=== PATIENT | male | born 1960 | race Hispanic/Latino ===

== ENCOUNTER 2022-09-14 10:30 | Inpatient (IN) | payer OTHER ==
--- OUTSIDE RECORDS SUMMARY | 2022-09-14 10:33 | XMS REPORT | Continuity of Care Document ---
:1960 Author Organization [facility] t Address [address] [place]. [address] [place] [address] Care Team Providers Name Role Phone No MD, Pcp Primary Care Physician Unavailable STACI ARRIAZA Attending Clinician Unavailable Laser, [facility] Attending Clinician Unavailable ADELINA GRAHAM Attending Clinician Unavailable VIRAJ Attending Clinician Unavailable STACI ARRIAZA Admitting Clinician Unavailable VIRAJ Admitting Clinician Unavailable Payers Payer Name Policy Type Policy Number Effective Date Expiration Date S aby HU[employer] [id number] 2019 2019 00:00:00 00:00:00 [employer] MEDICARE [id number] 2019 ADVANTAGE O 00:00:00 Problems Condition Condition Condition Status Onset Resolution Last Treating Co mments Source Name Details Category Date Date Treatment Clinician Date 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 3 [facility]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, glaucoma, 00:00: right eye, right eye, 00 severe severe stage stage 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 [facility] 00:00: 00 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 330 [facility] 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 Social History Social Habit Start Date Stop Date Quantity Comments Source Exposure to 2022-08-20 2022-08-30 Not sure [facility] SARS-CoV-2 (event) 00:00:00 07:33:00 Tobacco use and 2022-07-19 2022-07-19 Smokeless tobacco [facility] exposure 00:00:00 00:00:00 non-user Sex Assigned At [birth year] [facility] 00:00:00 00:00:00 Smoking Status Start Date Stop Date Source Never smoked tobacco [facility] Medications Ordered Filled Start Stop Current Ordering Indication Dosage Frequency Signature Comments Components Source Medication Medication Date Date Medication? Clinician (SIG) Name Name dorzolamide 2022- No 1[drp] Q.5D Administer [place] -timolol 5-02 24-11 1 drop [facility] (Cosopt) 08:57: 00:00 into the 22.3-6.8 06 :00 right eye MG/ML in the ophthalmic morning solution and 1 drop in the evening. acetaZOLAMI 2022- No 500mg Q.5D Take 500 [place] (Diamox) 5-11 05-11 mg by [facility] 500 MG 12 08:52: 00:00 mouth in hr capsule 24 :00 the morning and 500 mg in the evening. metFORMIN Yes Take by [place] (Glucophage 5-11 mouth 2 [facility]alt [facility] ) 500 MG 08:17: (two) tablet 47 times a day with meals. Insulin Yes Inject [facility] Aspart 100 5-11 under the Heal th UNIT/ML 08:17: skin 3 injection 47 (three) times a day before meals. prednisoLON Yes [id number] 1 drop in [place] E acetate 5-11 9101 right eye Healt h (Pred-Forte 00:00: 4 times a ) 1 % 00 day. ophthalmic suspension brimonidine 0 202- Yes [id number] 1[drp] Q12H Administer [facility] -timolol 5-11 05-11 1 drop Health (Combigan) 00:00: 04:59 into both 0.2-0.5 % 00 :00 eyes every ophthalmic 12 solution (twelve) hours. acetaZOLAMI 2022- Yes [id number] 500mg Q.5D Take 1 [place] (Diamox) 08-30 capsule Heal th 500 MG 12 00:00: 04:59 (500 mg hr capsule 00 :00 total) by mouth in the morning and 1 capsule (500 mg total) in the evening. Take medication at mealtime.. latanoprost 2022- No 1[drp] Administer [facility] (Xalatan) 08-01 1 drop Health 0.005 % 09:47: 00:00 into the ophthalmic 28 :00 right eye solution every night. brimonidine 2022- No 1[drp] Q.[id number] Administer [facility] (AlphaGAN 08-01 [id number] 1 drop H ealth P) 0.1 % 09:47: 00:00 3D into the ophthalmic 06 :00 right eye solution in the morning and 1 drop at noon and 1 drop in the evening. prednisoLON Yes [id number] 1 drop in [place] E acetate 08-01 right eye Healt h (Pred-Forte 00:00: 8 times a ) 1 % 00 day for 2 ophthalmic weeks, suspension then reduce to 1 drop 4 times a day for 1 week, then 1 drop 2 times a day for 1 week, then 1 drop once a day for one week, then STOP. atropine 1 2022- Yes [id number] 1[drp] Q.5D Administer [facility] % 08-01 1 drop Health ophthalmic 00:00: 04:59 into the solution 00 :00 right eye in the morning and 1 drop in the evening. prednisoLON 2022- No [id number] 1 drop in [place] E acetate 08-01 right eye Heal th (Pred-Forte 00:00: 00:00 8 times a ) 1 % 00 :00 day for 2 ophthalmic weeks, suspension then reduce to 1 drop 4 times a day for 1 week, then 1 drop 2 times a day for 1 week, then 1 drop once a day for one week, then STOP. atropine 1 2022- No [id number] 1[drp] Q.5D Administer [facility] % 4-12 05-11 1 drop Health ophthalmic 00:00: 00:00 into the solution 00 :00 right eye in the morning and 1 drop in the evening. metFORMIN 2023-0 Yes Take by [facility] (Glucophage 3-30 mouth 2 Healt h ) 500 MG 09:36: (two) tablet 54 times a day with meals. Insulin 2023-0 Yes Inject [facility] Aspart 100 3-30 under the Heal th UNIT/ML 09:36: skin 3 injection 54 (three) times a day before meals. latanoprost 2023-0 Yes 1[drp] Administer [facility] (Xalatan) 3-30 1 drop Health 0.005 % 09:36: into the ophthalmic 54 right eye solution every night. brimonidine 2023-0 Yes 1[drp] Q.[id number] Administer [facility] (AlphaGAN 3-30 [id number] 1 drop He alth P) 0.1 % 09:36: 3D into the ophthalmic 54 right eye solution in the morning and 1 drop at noon and 1 drop in the evening. acetaZOLAMI 2023-0 Yes 500mg Q.5D Take 500 U [place] (Diamox) 3-30 mg by Health 500 MG 12 09:36: mouth in hr capsule 54 the morning and 500 mg in the evening. dorzolamide 2023-0 Yes 1[drp] Q.5D Administer [facility] -timolol 3-30 1 drop Health (Cosopt) 09:36: into the 22.3-6.8 54 right eye MG/ML in the ophthalmic morning solution and 1 drop in the evening. metFORMIN 2023-0 Yes Take by [facility] (Glucophage 3-30 mouth 2 Healt h ) 500 MG 09:36: (two) tablet 54 times a day with meals. Insulin 2023-0 Yes Inject [place] Aspart 100 3-30 under the Heal th UNIT/ML 09:36: skin 3 injection 54 (three) times a day before meals. latanoprost 2023-0 Yes 1[drp] Administer [facility] (Xalatan) 3-30 1 drop Health 0.005 % 09:36: into the ophthalmic 54 right eye solution every night. brimonidine 2023-0 Yes 1[drp] Q.[id number] Administer [place] (AlphaGAN 3-30 [id number] 1 drop He alth P) 0.1 % 09:36: 3D into the ophthalmic 54 right eye solution in the morning and 1 drop at noon and 1 drop in the evening. acetaZOLAMI 0 Yes 500mg Q.5D Take 500 U [place] (Diamox) 3-30 mg by [facility] 500 MG 12 09:36: mouth in hr capsule 54 the morning and 500 mg in the evening. dorzolamide 0 Yes 1[drp] Q.5D Administer [facility] -timolol 3-30 1 drop Health (Cosopt) 09:36: into the 22.3-6.8 54 right eye MG/ML in the ophthalmic morning solution and 1 drop in the evening. metFORMIN Yes Take [place] (Glucophage 3-30 mouth 2 Healt [facility] ) 500 MG 09:36: (two) tablet 54 times a day with meals. Insulin Yes Inject [place] Aspart 100 3-30 under the Heal th UNIT/ML 09:36: skin 3 injection 54 (three) times a day before meals. acetaZOLAMI Yes 500mg Q.5D Take 500 U T [place] (Diamox) 3-30 mg by [facility] 500 MG 12 09:36: mouth in hr capsule 54 the morning and 500 mg in the evening. dorzolamide 0 Yes 1[drp] Q.5D Administer [facility] -timolol 3-30 1 drop Health (Cosopt) 09:36: into the 22.3-6.8 54 right eye MG/ML in the ophthalmic morning solution and 1 drop in the evening. Procedures Procedure Date / Time Performed Performing Clinician [facility] CYCLOPHOTOCOAGULATION, 2022-08-01 14:49:42 Staci Arriaza [place] [facility] TRANSSCLERAL - OD - RIGHT EYE OCT, RETINA - OU - BOTH EYES 2022-07-19 17:01:13 Staci Arriaza [facility] B-SCAN ULTRASOUND, HIGH 2022-07-19 16:40:56 Staci Arriaza [place] [facility] RESOLUTION - OU - BOTH EYES FUNDUS PHOTOS - OU - BOTH EYES 2022-07-19 16:25:24 Staci Arriaza [facility] Encounters Start End Encounter Admission Attending Care Care Encounter Source Date/Time Date/Time Type Type Clinicians Facility Department ID 2022-08-30 Outpatient [facility] [id number] [place] 07:35:04 [id number] [facility] 2022-08-20 Outpatient [facility] [id number] [place] 17:19:03 [id number] [facility] 2022-08-01 Outpatient [facility] [id number] [place] 08:16:38 [id number] [facility] 2022-07-26 Outpatient [facility] [id number] [place] 13:45:23 [id number] [facility] 2022-07-23 Outpatient [facility] [id number] [place] 17:09:13 [id number] [facility] 2022-07-19 Outpatient [facility] [id number] [place] 09:09:46 [id number] [facility] 2022-07-16 Outpatient [facility] [id number] [place] 10:47:39 [id number] [facility] 2022-07-10 Outpatient [facility] [id number] [place] 08:43:40 [id number] [facility] 2022-07-09 Outpatient [facility] [id number] [place] 09:40:02 [id number] [facility] 2022-06-29 Outpatient [facility] [id number] [place] 13:03:56 [id number] [facility] 2022-10-01 2022-10-01 Outpatient SHAUNASTACI [facility] [id number] [place] 08:30:00 08:30:00 [facility] 2022-08-30 2022-08-30 Office Staci Arriaza [facility] [id number] [place] 07:45:00 09:07:[address] [id number] Health [id number] 2022-08-01 2022-08-01 Procedure Staci Arriaza [facility] 6400 [id number] [place] 08:30:00 09:56:06 Visit Laser, [facility] Oph Minor [facility] 350.1.1 3.58 Health [id number] 2022-07-23 2022-07-23 Outpatient SHAUNASTACI [facility] [id number] [place] 09:45:00 09:45:00 Health 2022-07-19 2022-07-19 Outpatient [facility] [id number] [place] 11:00:00 12:14:27 [facility] 2022-07-19 2022-07-19 Outpatient [facility] [id number] [place] 09:45:00 12:14:10 Health 2022-07-19 2022-07-19 Outpatient [facility] [id number] [place] 09:35:00 12:13:38 Health 2022-07-19 2022-07-19 Office Staci Arriaza [place] [id number] [place] 09:15:00 12:09:17 Visit BG VERA [id number] [facility] [id number] 2022-06-24 2022-06-25 Emergency E SANTOS, [facility] [id number] [facility] 20:05:00 06:37:00 ADELINA 2021-11-06 2021-11-06 Outpatient GAGE PATTON [id number] [facility] 01:00:00 01:00:00 HN [id number] da [facility] Program Results This patient has no known results.
[2022-09-14 12:28] LABS: Blood Gas Oxyhemoglobin 87.1 % (94-97); Blood O2 Saturation 89.1 % (92-98.5)
[2022-09-14] MEDS ORDERED: INSULIN -REGULAR HUMAN 50 UNIT/0.5 ML ML ONE (12:33)
[2022-09-14] MEDS ORDERED: NA CHLORIDE 0.9% 1,000 ML ONE (12:33)
--- NOTE | 2022-09-14 12:36 | RAD REPORT ---
EXAM DESCRIPTION: Savita Single View09/14/2022 12:25 pm CLINICAL HISTORY: tachypnea COMPARISON: No comparisons TECHNIQUE: Portable AP view of the chest. FINDINGS: Elevation of the right hemidiaphragm. There appears to be interposition of bowel under the right hemidiaphragm as well. Patchy right basilar and central airspace opacification. No pneumothor ax or effusion. The cardiomediastinal contours are unremarkable. IMPRESSION: Patchy right basilar and central airspace opacification, concerning for pneumonia.
[2022-09-14 13:41] LABS: Albumin 2.7 g/dL (3.4-5.0); Bilirubin Total 0.8 mg/dL (0.2-1.0); Potassium 2.8 mEq/L (3.5-5.1); Protein, Total 7.6 g/dL (6.4-8.2)
--- NOTE | 2022-09-14 13:56 | ER ---
Nurse's Notes [facility] Name: Jameson Alves Age: 62 yrs Sex: Male : 1960 Arrival Date: 09/14/2022 Time: 10:30 Bed 4 Private MD: Diagnosis: Pneumonia, unspecified organism;Hyperglycemia, unspecified;Dehydration;Acidosis;Severe sepsis without septic shock Presentation: 09/14 11:25 Chief complaint: Patient's son or daughter states: WEAKNESS AND HIGH BGL. Coronavirus bp screen: At this time, the client does not indicate any symptoms associated with coronavirus-19. Ebola Screen: No symptoms or risks identified at this time. Initial Sepsis Screen: Does the patient meet any 2 criteria? No. Patient's initial sepsis screen is negative. Does the patient have a suspected source of infection? No. Patient's initial sepsis screen is negative. Risk Assessment: Do you want to hurt yourself or someone else?. Onset of symptoms is unknown. 11:25 Method Of Arrival: Wheelchair bp 11:25 Acuity: SOBIA 2 bp Triage Assessment: 11:31 General: Appears distressed, ill, Behavior is drowsy. Pain: Denies pain. EENT: No bp deficits noted. Neuro: No deficits noted. Cardiovascular: No deficits noted. Respiratory: Reports shortness of breath Respiratory effort is shallow, Respiratory pattern is tachypnea. Respiratory: Onset: The symptoms/episode began/occurred yesterday, the patient has moderate shortness of breath. GI: No signs and/or symptoms were reported involving the gastrointestinal system. : No signs and/or symptoms were reported regarding the genitourinary system. Derm: No deficits noted. Musculoskeletal: No deficits noted. Historical: - Allergies: 12:42 No Known Allergies; hb - Immunization history:: Adult Immunizations up to date. - Social history:: Smoking status: Patient denies any tobacco usage or history of. - Family history:: not pertinent. - Hospitalizations: : No recent hospitalization is reported. Screenin:10 [facility] ED Fall Risk Assessment (Adult) Score/Fall Risk Level 3 or more points = High hb Risk Oriented to surroundings, Maintained a safe environment, Educated pt \T\ family on fall prevention, incl call for assistance when getting out of bed. Abuse screen: Denies threats or abuse. Denies injuries from another. Nutritional screening: No deficits noted. Tuberculosis screening: No symptoms or risk factors identified. Assessment: 11:32 General: Appears ill. Pain: Denies pain. Neuro: Level of Consciousness is obeys hb commands, lethargic, Oriented to person. Cardiovascular: Patient's skin is warm and dry. Rhythm is sinus tachycardia. Respiratory: Airway is patent Respiratory effort is shallow, Respiratory pattern is tachypnea. GI: No signs and/or symptoms were reported involving the gastrointestinal system. : No signs and/or symptoms were reported regarding the genitourinary system. EENT: No signs and/or symptoms were reported regarding the EENT system. Derm: Skin is pink, warm \T\ dry. Musculoskeletal: No signs and/or symptoms reported regarding the musculoskeletal system. 13:00 Reassessment: Patient appears in no apparent distress at this time. No changes from hb previously documented assessment. Patient and/or family updated on plan of care and expected duration. Pain level reassessed. 14:29 Reassessment: Patient appears in no apparent distress at this time. No changes from hb previously documented assessment. Patient and/or family updated on plan of care and expected duration. Pain level reassessed. 15:32 Reassessment: Patient appears in no apparent distress at this time. No changes from hb previously documented assessment. 17:13 Reassessment: Patient appears in no apparent distress at this time. No changes from ld1 previously documented assessment. Patient and/or family updated on plan of care and expected duration. Pain level reassessed. Vital Signs: 11:25 BP 122 / 54; Pulse 76; Resp 24; Temp 99.1; Pulse Ox 91% ; bp 12:54 BP 120 / 74; Pulse 99; Resp 18; Pulse Ox 96% on R/A; ld1 14:59 BP 122 / 74; Pulse 100; Resp 30; Pulse Ox 95% on R/A; hb 16:00 BP 106 / 65; Pulse 91; Resp 31; Pulse Ox 92% on R/A; ld1 16:45 BP 95 / 59; Pulse 90; Resp 30; Pulse Ox 90% on R/A; ld1 ED Course: 10:33 Patient arrived in ED. ts1 10:36 Yared Moreira MD is Attending Physician. rn 11:27 Triage completed. bp 11:32 Arm band placed on. bp 12:26 Chest Single View XRAY In Process Unspecified. EDMS 13:00 Inserted saline lock: 20 gauge in left upper arm, using aseptic technique. Blood ld1 collected. 13:00 Inserted saline lock: 20 gauge in left wrist, using aseptic technique. ld1 13:10 Patient has correct armband on for positive identification. hb 13:54 Zachary Escobar MD is Hospitalizing Provider. rn 18:14 Attending Physician role handed off by Yared Moreira MD [email or web address] 18:29 Yared Moreira MD is Attending Physician. eb Administered Medications: 11:45 Drug: Insulin Regular Human IVP 10 units {Co-Signature: marco antonio (Bisi Diaz RN).} Route: hb IVP; Site: right wrist; 11:45 Drug: Insulin Regular Human Sub-Q 10 units {Co-Signature: marco antonio (Bisi Diaz RN).} hb Route: Sub-Q; Site: left upper arm; 12:32 Drug: NS 0.9% IV 1000 ml Route: IV; Rate: 1000 ml; Site: left wrist; hb 14:56 Drug: Rocephin IV 1 grams Route: IV; Rate: calculated rate; Site: left antecubital; ld1 14:56 Drug: AZITHromycin IVPB 500 mg Route: IVPB; Infused Over: 1 hrs; Site: left wrist; ld1 Outcome: 13:55 Decision to Hospitalize by Provider. rn 18:13 Patient left the ED. mm9 18:29 Patient left the ED. eb Signatures: Dispatcher [employer] EDNY Yared Moreira MD MD rn Baxter, Heather RN GENEVIEVE Renuka Garrett RN RN [id number] Arsalan Whipple RN RN bp Botello, Elizabeth eb Bisi Diaz, GENEVIEVE RN [email or web address] Anum Blackwell mm9 Pilar Hobbs PAS PAS ts1 Bisi Diaz RN ld1 Corrections: (The following items were deleted from the chart) 13:13 13:11 Insulin Regular Human Sub-Q 10 units Sub-Q in left upper arm hb hb
--- NOTE | 2022-09-14 13:56 | EDPHYS ---
Physician Documentation [facility] Name: Jameson Alves Age: 62 yrs Sex: Male : 1960 Arrival Date: 09/14/2022 Time: 10:30 Bed 4 Private MD: ED Physician Yared Moreira HPI: 09/14 12:16 This 62 yrs old Female presents to ER via Wheelchair with complaints of rn General weakness, high blood sugar. 12:16 Pt reports generalized weakness, since yesterday, high blood sugar, unknown number, rn takes insulin and family reports compliant. Was found asleep in wheelchair in middle of street yesterday. . Onset: The symptoms/episode began/occurred yesterday. Severity of symptoms: At their worst the symptoms were moderate in the emergency department the symptoms are unchanged. The patient has experienced similar episodes in the past. The patient has not recently seen a physician. Historical: - Allergies: 12:42 No Known Allergies; hb - Immunization history:: Adult Immunizations up to date. - Social history:: Smoking status: Patient denies any tobacco usage or history of. - Family history:: not pertinent. - Hospitalizations: : No recent hospitalization is reported. ROS: 12:16 Constitutional: Negative for fever, chills, and weight loss, Eyes: Negative for injury, rn pain, redness, and discharge, Cardiovascular: Negative for chest pain, palpitations, and edema, Respiratory: + rapid breathing Abdomen/GI: Negative for abdominal pain, nausea, vomiting, diarrhea, and constipation, Back: Negative for injury and pain, : Negative for injury, bleeding, discharge, and swelling, MS/Extremity: Negative for injury and deformity, Skin: Negative for injury, rash, and discoloration, Neuro: Negative for headache, numbness, tingling, and seizure Exam: 12:16 Constitutional: Thin male, somnolent, awakens to voice Head/Face: Normocephalic, rn atraumatic. ENT: dry MM Cardiovascular: Tachycardic, regular Respiratory: Mild tachypnea, no retractions Abdomen/GI: Soft, non-tender Skin: Warm, dry MS/ Extremity: Pulses equal, no cyanosis. Neuro: Awake and alert, GCS 15, oriented to person, place, time, and situation. Cranial nerves II-XII grossly intact. Motor strength 4/5 in all extremities. Sensory grossly intact. 13:47 ECG was reviewed by the Attending Physician. rn Vital Signs: 11:25 BP 122 / 54; Pulse 76; Resp 24; Temp 99.1; Pulse Ox 91% ; bp 12:54 BP 120 / 74; Pulse 99; Resp 18; Pulse Ox 96% on R/A; ld1 14:59 BP 122 / 74; Pulse 100; Resp 30; Pulse Ox 95% on R/A; hb 16:00 BP 106 / 65; Pulse 91; Resp 31; Pulse Ox 92% on R/A; ld1 16:45 BP 95 / 59; Pulse 90; Resp 30; Pulse Ox 90% on R/A; ld1 MDM: 10:36 Patient medically screened. rn 13:53 Differential Diagnosis sepsis, pneumonia, UTI, DKA, hyperglycemia, acidosis. Data rn reviewed: vital signs, nurses notes, lab test result(s), EKG, radiologic studies, plain films, and as a result, I will admit patient. Consideration of Admission/Observation Patient was admitted/placed on observation. Escalation of care including admission/observation considered. Management of patient was discussed with the following: Hospitalist: . 13:54 Counseling: I had a detailed discussion with the patient and/or guardian regarding: the rn historical points, exam findings, and any diagnostic results supporting the discharge/admit diagnosis, lab results, radiology results, the need for further work-up and treatment in the hospital. Response to treatment: the patient's symptoms have mildly improved after treatment, and as a result, I will admit patient. 14:33 ED course: Pt with elevated lactate but no shock, no hypotension, and stable vitals, rn improved with fluids given.. 09/14 11:35 Order name: Glucose, Ancillary Testing; Complete Time: 11:35 EDMS 09/14 11:36 Order name: Blood Culture Adult (2) rn 09/14 11:36 Order name: CBC with Diff rn 09/14 11:36 Order name: CMP; Complete Time: 13:43 rn 09/14 11:36 Order name: Lactate w/ 2H reflex if indic.; Complete Time: 14:33 rn 09/14 11:36 Order name: Protime (+inr); Complete Time: 14:33 rn 09/14 11:36 Order name: Ptt, Activated; Complete Time: 14:33 09/14 11:36 Order name: Urinalysis w/ reflexes rn 09/14 11:36 Order name: ABG; Complete Time: 13:37 09/14 11:36 Order name: Ketone, Serum; Complete Time: 13:37 09/14 11:36 Order name: BNP; Complete Time: 13:43 09/14 11:36 Order name: Troponin High Sensitivity; Complete Time: 13:43 09/14 14:49 Order name: Blood Culture [facility] 09/14 14:50 Order name: Basic Metabolic Panel [facility] 09/14 14:51 Order name: Thyroid Stimulating Hormone [facility] 09/14 14:53 Order name: CBC without Diff [facility] 09/14 14:53 Order name: Comprehensive Metabolic Panel [facility] 09/14 15:25 Order name: Glucose, Ancillary Testing [facility] 09/14 18:15 Order name: Glucose, Ancillary Testing [facility] 09/14 11:36 Order name: Chest Single View XRAY; Complete Time: 12:43 09/14 11:36 Order name: EKG; Complete Time: 11:37 09/14 14:59 Order name: 75g Consistent Carbohydrate (ADA 2200) [facility] 09/14 11:36 Order name: Accucheck; Complete Time: 11:37 09/14 11:36 Order name: Cardiac monitoring; Complete Time: 11:37 09/14 11:36 Order name: EKG - Nurse/Tech; Complete Time: 11:41 09/14 11:36 Order name: O2 Per Protocol; Complete Time: 12:56 09/14 11:36 Order name: O2 Sat Monitoring; Complete Time: 12:56 09/14 11:36 Order name: Vital Signs; Complete Time: 12:56 09/14 12:39 Order name: Labs - recollect needed: recollect all the blood; Complete Time: 14:23 eb EC:47 Rate is 104 beats/min. Rhythm is irregular. Other deviation noted. QRS is positive in rn lead I and negative in lead aVF. VT interval is normal. QRS interval is normal. QT interval is normal. No Q waves. T waves are Normal. No ST changes noted. Clinical impression: Sinus tachycardia. Interpreted by me. Reviewed by me. Administered Medications: 11:45 Drug: Insulin Regular Human IVP 10 units {Co-Signature: ld1 (Bisi Diaz RN).} Route: hb IVP; Site: right wrist; 11:45 Drug: Insulin Regular Human Sub-Q 10 units {Co-Signature: ld1 (Bisi Diaz RN).} hb Route: Sub-Q; Site: left upper arm; 12:32 Drug: NS 0.9% IV 1000 ml Route: IV; Rate: 1000 ml; Site: left wrist; hb 14:56 Drug: Rocephin IV 1 grams Route: IV; Rate: calculated rate; Site: left antecubital; ld1 14:56 Drug: AZITHromycin IVPB 500 mg Route: IVPB; Infused Over: 1 hrs; Site: left wrist; ld1 Disposition Summary: 09/14/22 13:55 Hospitalization Ordered Hospitalization Status: Inpatient Admission rn Provider: Zachary Escobar rn Location: Telemetry/MedSurg (Inpatient) rn Condition: Stable rn Problem: new rn Symptoms: have improved rn Bed/Room Type: Standard rn Room Assignment: 407(09/14/22 16:26) Diagnosis - Pneumonia, unspecified organism rn - Hyperglycemia, unspecified rn - Dehydration rn - Acidosis rn - Severe sepsis without septic shock rn Forms: - Medication Reconciliation Form rn - SBAR form apparel pattern maker time excluding procedures: 13:54 Critical care time: Bedside Care: 35 minutes, Family Intervention: 5 minutes. Total rn time: 40 minutes Signatures: Dispatcher [employer] EDYared Comer MD MD rn Baxter, Heather RN RN Arsalan Emery RN Madonna Mesa Bisi Diaz RN RN ld1 Bisi Diaz RN ld1 Corrections: (The following items were deleted from the chart) 12:18 12:16 Constitutional: Negative for fever, chills, and weight loss, Eyes: Negative for rn injury, pain, redness, and discharge, Cardiovascular: Negative for chest pain, palpitations, and edema, Respiratory: + sob Abdomen/GI: Negative for abdominal pain, nausea, vomiting, diarrhea, and constipation, Back: Negative for injury and pain, : Negative for injury, bleeding, discharge, and swelling, MS/Extremity: Negative for injury and deformity, Skin: Negative for injury, rash, and discoloration, Neuro: Negative for headache, numbness, tingling, and seizure rn 16:26 13:55 rn hb
[2022-09-14 14:31] LABS: Protime INR 1.03
[2022-09-14] MEDS ORDERED: NA CHLORIDE 0.9% 100 ML ONE (14:33)
[2022-09-14] MEDS ORDERED: CEFTRIAXONE 1000 MG/VIAL ONE (14:33)
[2022-09-14] MEDS ORDERED: AZITHROMYCIN 500 MG INJ IVPB ONE (14:33)
[2022-09-14] MEDS ORDERED: NA CHLORIDE 0.9% 250 ML ONE (14:34)
--- NOTE | 2022-09-14 14:40 | P.HP ---
Certification for Inpatient With expected LOS: >2 Midnights Practitioner: I am a practitioner with admitting privileges, knowledge of patient current condition, hospital course, and medical plan of care. Services: Services provided to patient in accordance with Admission requirements found in Title 42 Section 412.3 of the Code of Federal Regulations Patient History Date of Service: 09/14/22 Reason for admission: Pneumonia altered mental status History of Present Illness: Patient is 62 years of age is unresponsive history obtained from [id number] and he has been having problems for the past 2 weeks patient is mobile an electric wheelchair been falling asleep very easily this time was found on the street sleep and in his electric wheelchair. Not been eating and drinking for the past week he started having some shortness of breath were also found to be hyperglycemic no cough or fever really he is alert and cooperative patient does not smoke - Past Medical/Surgical History -: History of stroke followed by a coma -: History of fall from a tree -: Diabetes - Social History Smoking Status: Former smoker Review of Systems is unable to be obtained Physical Examination - Vital Signs Temperature: 99.1 F Blood Pressure: 122/54 Pulse: 76 Respirations: 24 Pulse Ox (%): 91 - Physical Exam General: Unresponsive Respiratory: Clear to auscultation bilaterally, Diminished Cardiovascular: No edema, Normal pulses, Regular rate/rhythm, Normal S1 S2 Gastrointestinal: Normal bowel sounds, Soft and benign Neurological: Other (Right side is paralyzed unable to do a full exam patient not cooperative right arm is flexed) - Studies Laboratory Data (last 24 hrs) 09/14/22 13:54: PT 11.3, INR 1.03, APTT 30.5 09/14/22 13:07: Sodium 135 L, Potassium 2.8 L, BUN 38 H, Creatinine 1.17, Glucose 462 H*, Total Bilirubin 0.8, AST 26, ALT 19, Alkaline Phosphatase 165 H Assessment and Plan - Problems (Diagnosis) (1) Pneumonia Current Visit: Yes Status: Acute Plan: Patient is 62 years of age has been sick for about 2 weeks altered mental status excessive sleepiness numbness of breath admitted with a right lung pneumonia he is paralyzed has got weakness on the right side currently from a fall from a tree about 20 years ago currently he is altered and not responsive although he will open his eyes inside his paralyzed right arm more so than the right leg x- ray shows an infiltrate on the right side patient is very hyperglycemic metabolic acidosis with broad-spectrum antibiotics (2) Hyperglycemia due to type 1 diabetes mellitus Current Visit: Yes Status: Acute Plan: Patient appears to be in hyperosmolar coma altered mental status but on insulin drip with IV fluids in addition to some NPH - Advance Directives Does patient have a Living Will: No Does patient have a Durable POA for Healthcare: No
[2022-09-14] MEDS ORDERED: D50W 25 GM/50 ML SYRINGE IV PRN (14:45)
[2022-09-14] MEDS ORDERED: GLUCAGON 1 MG/VIAL IM PRN (14:45)
[2022-09-14] MEDS ORDERED: INSULIN -REGULAR HUMAN 100 UNIT in NA CHLORIDE 0.9% 100 ML IV SCH (14:45)
[2022-09-14 14:48] LABS: Absolute Lymphocytes (CBC) 0.8 K/uL (0.7-4.9); Hematocrit 51.6 % (39.6-49.0); Lymphocytes % 4.6 % (15.3-44.8); MCV 92.5 fL (80-100); MPV 10.3 fL (7.6-11.3); RBC Red Blood Cell Count 5.57 M/uL (4.33-5.43)
[2022-09-14] MEDS ORDERED: D10W 250 ML BAG IV PRN (14:50)
[2022-09-14] MEDS ORDERED: POTASSIUM 25 MEQ EFFERV TAB PO ONE (18:05)
[2022-09-14] MEDS: KCL 20 MEQ/100 mL IVPB 20 MEQ/100 ML BAG IV SCH ×2 (18:31→20:05)
[2022-09-14] MEDS: NACHLORIDE 0.45% 1,000 ML IV SCH (18:31)
[2022-09-14] MEDS: Levofloxacin 750mg IV 750 MG/150 ML BAG IV SCH (20:05)
[2022-09-14] MEDS: ENOXAPARIN 40 MG/0.4 ML SQ SCH (20:06)
[2022-09-14] MEDS: THIAMINE 200 MG/2 ML INJ IVP SCH (20:06)
[2022-09-14] MEDS: INSULIN 70/30 100 UNITS/ML SQ SCH (20:17)
[2022-09-14 21:34] LABS: White Blood Cell Scan OK (OK)
[2022-09-14 21:35] LABS: Blood Morphology Comment NOT SEEN (NOT SEEN); Platelet Estimate DECR
[2022-09-14 23:01] VITALS: BMI 21.6
[2022-09-15] MEDS: NACHLORIDE 0.45% 1,000 ML IV SCH ×3 (01:00→18:35)
[2022-09-15 04:49] LABS: Hematocrit 45.8 % (39.6-49.0); MPV 11.2 fL (7.6-11.3); RBC Red Blood Cell Count 4.98 M/uL (4.33-5.43)
[2022-09-15 05:08] LABS: Albumin 2.4 g/dL (3.4-5.0); Bilirubin Total 0.9 mg/dL (0.2-1.0); Potassium 3.8 mEq/L (3.5-5.1); Protein, Total 7.6 g/dL (6.4-8.2); Thyroid Stimulating Hormone 2.2 uIU/mL (0.358-3.740)
[2022-09-15] MEDS ORDERED: ALBUMIN HUMAN 25% 100 ML IV ONE (08:17)
[2022-09-15] MEDS: INSULIN 70/30 100 UNITS/ML SQ SCH ×2 (08:31→22:07)
[2022-09-15] MEDS: ENOXAPARIN 40 MG/0.4 ML SQ SCH (08:33)
[2022-09-15] MEDS: THIAMINE 200 MG/2 ML INJ IVP SCH ×2 (08:36→21:53)
[2022-09-15] MEDS: POTASSIUM 25 MEQ EFFERV TAB PO SCH (08:37)
[2022-09-15] MEDS: TAMSULOSIN 0.4 MG SR CAP PO SCH (08:43)
[2022-09-15] MEDS: acetaZOLAMIDE 250 MG TAB PO SCH ×2 (08:44→21:53)
[2022-09-15] MEDS ORDERED: ACETAMINOPHEN 500 MG TAB PO ONE (10:46)
[2022-09-15] MEDS ORDERED: ACETAMINOPHEN 325 MG TABLET PO PRN (10:46)
[2022-09-15] MEDS: METHYLPREDNISOLONE 125 MG INJ IV SCH ×2 (12:25→16:59)
--- NOTE | 2022-09-15 12:30 | RAD REPORT ---
EXAM DESCRIPTION: CT - Thorax Wo Con - 09/15/2022 8:13 am CLINICAL HISTORY: pneumonia COMPARISON: Chest Single View dated 09/14/2022 TECHNIQUE: Axial thin cut images of the chest were obtained without IV contrast. Multiplanar reforma ts were generated and reviewed. All CT scans are performed using dose optimization technique as appropriate and may include automated exposure control or mA/KV adjustment according to patient size. FINDINGS: Consolidated air space opacities with air bronchogram, and adjacent patchy ground-glass op acities, most pronounced in the central right upper lobe posteriorly, and the dependent aspects of th e right middle lobe and right lower lobe. Small right pleural effusion, tracking along the right major fissure inferiorly. Trace fluid along th e right minor fissure. Mild posterior right parietal pleural calcified plaque. Platelike dependent at electatic changes on the left, may relate to prior asbestos exposure. Sub solid anterior left apical 6 millimeter nodule is incidentally noted, see axial image 15/16. No pneumothorax. No abnormal mediastinal or hilar masses or lymphadenopathy seen. No significant aortic or pulmonary a rtery findings. Assessment is limited in the absence of IV contrast. No chest wall mass or abnormal axillary lymphadenopathy. Evaluation of the solid abdominal structures reveals no suspicious findings. IMPRESSION: Areas of airspace disease throughout the right lung as above with trace right pleural ef fusion, concerning for multifocal pneumonia.
[2022-09-15] MEDS: Levofloxacin 750mg IV 750 MG/150 ML BAG IV SCH (15:37)
[2022-09-15] MEDS: METFORMIN ER 500 MG TAB PO SCH (16:59)
[2022-09-15] MEDS ORDERED: NA CHLORIDE 0.9% 500 ML IV ONE (20:12)
[2022-09-15] MEDS ORDERED: AMIODARONE HCL 150 MG in D5W 100 ML IV STA (20:15)
[2022-09-15] MEDS ORDERED: DIGOXIN 0.25 MG/ML AMP IV ONE (20:16)
[2022-09-15] MEDS ORDERED: AMIODARONE IN DEXTROSE,ISO-OSM 360 MG/200 ML BAG IV SCH (20:30)
--- NOTE | 2022-09-15 20:36 | P.PN ---
Subjective Date of Service: 09/15/22 Patient seen and examined. Family at bedside. Patient clinically appears to be doing well. Patient denies any new complaints. Patient is a very poor historian and his family assist with the information. He has a daughter on the phone who also relayed to me that he used to transfer a few weeks ago but he needs almost max assist at this time. They do want him to go home once his pneumonia clears up. Continue with antibiotic therapy per pulmonary recommendation. Review of Systems 10-point ROS is otherwise unremarkable Physical Examination - Vital Signs Temperature: 98.2 F Blood Pressure: 88/51 Pulse: 75 Respirations: 22 Pulse Ox (%): 91 - Physical Exam General: Alert, In no apparent distress, Oriented x1 HEENT: Atraumatic, PERRLA, EOMI Neck: Supple, JVD not distended Respiratory: Clear to auscultation bilaterally, Normal air movement Cardiovascular: Regular rate/rhythm, Normal S1 S2, No murmurs Gastrointestinal: Normal bowel sounds, Soft and benign, Non-distended, No tenderness Musculoskeletal: No clubbing, No swelling, No tenderness Integumentary: No rashes Neurological: Sensation intact, Cranial nerves 3-12 intact - Studies Laboratory Data (last 24 hrs) 09/14/22 13:07: WBC 17.30 H, Hgb 17.0, Hct 51.6 H, Plt Count 90 L Microbiology Data (last 24 hrs): 09/14/22 13:54 Blood - Blood Anaerobic Blood Culture - Final 09/14/22 13:48 Blood - Blood Anaerobic Blood Culture - Final Medications List Reviewed: Yes Assessment & Plan - Problems (Diagnosis) (1) Hyperglycemia due to type 1 diabetes mellitus Current Visit: Yes Status: Acute (2) Pneumonia Current Visit: Yes Status: Acute (3) CVA (cerebral vascular accident) Current Visit: Yes Status: Acute - Plan Plan: 1. Continue with IV antibiotics 2. Awaiting sputum and blood culture 3. Repeat chest x-ray 4. CT scan of the chest if pneumonia is not improving- 5. Pulmonary consultation 6. Continue with nebs as needed 7. O2 per protocol 8. Continue with gentle hydration 9. Repeat labs and monitor BS closely 10. GI and DVT prophylaxis Discharge Plan: Home Plan to discharge in: Greater than 2 days - Advance Directives Does patient have a Living Will: No Does patient have a Durable POA for Healthcare: No - Code Status/Comfort Care Code Status Assessed: Yes Code Status: Full Code Critical Care: No Time Spent Managing PTS Care (In Minutes): 35
[2022-09-15] MEDS: Prednisolone Acet 1% Eye Drop OPTH SCH (21:00)
[2022-09-15] MEDS: DOXYCYCLINE 100 MG in NA CHLORIDE 0.9% 100 ML IVPB SCH (21:53)
[2022-09-16] MEDS: METHYLPREDNISOLONE 125 MG INJ IV SCH ×2 (00:55→06:07)
[2022-09-16] MEDS ORDERED: AMIODARONE IN DEXTROSE,ISO-OSM 360 MG/200 ML BAG IV SCH (02:36)
[2022-09-16] MEDS: NACHLORIDE 0.45% 1,000 ML IV SCH ×2 (06:07→17:13)
--- NOTE | 2022-09-16 07:30 | EKG ---
Test Date: 2022-09-14 Test Time: 11:39:11 Glue Mixer: STACIE MEASUREMENT RESULTS: Intervals: Rate: 104 [place]: 154 QRSD: 112 QT: 312 QTc: 410 [place]: P: 56 [place]: 154 QRS: -6 T: 14 INTERPRETIVE STATEMENTS: Sinus tachycardia with premature atrial complexes Right bundle branch block Abnormal ECG No previous ECG available for comparison Electronically Signed On 09-16-22 07:25:45 CDT by Zain Ugarte
[2022-09-16] MEDS: TAMSULOSIN 0.4 MG SR CAP PO SCH (09:25)
[2022-09-16] MEDS: INSULIN 70/30 100 UNITS/ML SQ SCH ×2 (09:25→17:13)
[2022-09-16] MEDS: THIAMINE 200 MG/2 ML INJ IVP SCH ×2 (09:25→20:30)
[2022-09-16] MEDS: POTASSIUM 25 MEQ EFFERV TAB PO SCH (09:25)
[2022-09-16] MEDS: acetaZOLAMIDE 250 MG TAB PO SCH ×2 (09:25→20:30)
[2022-09-16] MEDS: CEFTRIAXONE 1,000 MG in NA CHLORIDE 0.9% 50 ML IVPB SCH (09:26)
[2022-09-16] MEDS: ENOXAPARIN 40 MG/0.4 ML SQ SCH (09:26)
[2022-09-16] MEDS: DOXYCYCLINE 100 MG in NA CHLORIDE 0.9% 100 ML IVPB SCH ×2 (09:26→20:30)
[2022-09-16] MEDS: TIMOLOL OPTH SCH ×2 (09:27→20:27)
[2022-09-16] MEDS: Prednisolone Acet 1% Eye Drop OPTH SCH ×4 (09:27→20:26)
[2022-09-16] MEDS: BRIMONIDINE OPTH SCH ×2 (09:27→20:27)
[2022-09-16] MEDS: METFORMIN ER 500 MG TAB PO SCH ×2 (09:50→17:13)
[2022-09-16] MEDS ORDERED: AMIODARONE HCL 450 MG in D5W 241 ML IV SCH (14:45)
--- NOTE | 2022-09-16 18:44 | P.PN ---
Date of Service: 09/16/22 Subjective Patient had gone into atrial fibrillation with rapid ventricular response. Continue with treatment of the pneumonia and wean off the amiodarone drip as patient has gone back into sinus rhythm. Review of Systems 10-point ROS is otherwise unremarkable Physical Examination - Vital Signs Reviewed - Physical Exam General: Alert, In no apparent distress, Oriented x1 HEENT: Atraumatic, PERRLA, EOMI Neck: Supple, JVD not distended Respiratory: Clear to auscultation bilaterally, Normal air movement Cardiovascular: Regular rate/rhythm, Normal S1 S2, No murmurs Gastrointestinal: Normal bowel sounds, Soft and benign, Non-distended, No ten derness Musculoskeletal: No clubbing, No swelling, No tenderness Neurological: No focal deficits Assessment & Plan - Problems (Diagnosis) (1) Hyperglycemia due to type 1 diabetes mellitus Current Visit: Yes Status: Acute (2) Pneumonia Current Visit: Yes Status: Acute (3) CVA (cerebral vascular accident) Current Visit: Yes Status: Acute - Plan Continue with plan of care as mentioned below: 1. Continue with IV antibiotics 2. Awaiting sputum and blood culture 3. Repeat chest x-ray 4. Continue medication for rate control 5. Appreciate cardiology and pulmonary consultation 6. Continue with nebs as needed 7. O2 per protocol 8. Continue with gentle hydration 9. Repeat labs and monitor BS closely 10. GI and DVT prophylaxis Discharge Plan: Home Plan to discharge in: Greater than 2 days - Advance Directives Does patient have a Living Will: No Does patient have a Durable POA for Healthcare: No - Code Status/Comfort Care Code Status Assessed: Yes Code Status: Full Code Critical Care: No Time Spent Managing PTS Care (In Minutes): 35
[2022-09-16] MEDS: predniSONE 20 MG TAB PO SCH (20:30)
[2022-09-16] MEDS: AMIODARONE HCL 200 MG TAB PO SCH (20:30)
[2022-09-17] MEDS: NACHLORIDE 0.45% 1,000 ML IV SCH ×2 (05:17→16:54)
[2022-09-17 06:16] LABS: Absolute Lymphocytes (CBC) 0.4 K/uL (0.7-4.9); Hematocrit 36.6 % (39.6-49.0); Lymphocytes % 2.7 % (15.3-44.8); MCV 91.2 fL (80-100); MPV 10.2 fL (7.6-11.3); RBC Red Blood Cell Count 4.02 M/uL (4.33-5.43)
[2022-09-17 06:58] LABS: Albumin 1.7 g/dL (3.4-5.0); Bilirubin Total 0.4 mg/dL (0.2-1.0); C-Reactive Protein 91.6 mg/L (<3.00); Magnesium 1.6 mg/dL (1.6-2.4); Potassium 3.1 mEq/L (3.5-5.1); Protein, Total 5.5 g/dL (6.4-8.2); Thyroid Stimulating Hormone 2.43 uIU/mL (0.358-3.740)
[2022-09-17 07:20] LABS: Blood Morphology Comment NOT SEEN (NOT SEEN); Platelet Estimate ADEQ; White Blood Cell Scan OK (OK)
[2022-09-17] MEDS: INSULIN 70/30 100 UNITS/ML SQ SCH ×2 (08:54→16:53)
[2022-09-17] MEDS: THIAMINE 200 MG/2 ML INJ IVP SCH (08:59)
[2022-09-17] MEDS: METFORMIN ER 500 MG TAB PO SCH ×2 (08:59→16:57)
[2022-09-17] MEDS: TAMSULOSIN 0.4 MG SR CAP PO SCH (08:59)
[2022-09-17] MEDS: POTASSIUM 25 MEQ EFFERV TAB PO SCH (08:59)
[2022-09-17] MEDS: ENOXAPARIN 40 MG/0.4 ML SQ SCH (08:59)
[2022-09-17] MEDS: acetaZOLAMIDE 250 MG TAB PO SCH ×2 (08:59→21:14)
[2022-09-17] MEDS: CEFTRIAXONE 1,000 MG in NA CHLORIDE 0.9% 50 ML IVPB SCH (08:59)
[2022-09-17] MEDS: AMIODARONE HCL 200 MG TAB PO SCH ×2 (08:59→21:14)
[2022-09-17] MEDS: Prednisolone Acet 1% Eye Drop OPTH SCH ×4 (09:00→21:15)
[2022-09-17] MEDS: DOXYCYCLINE 100 MG in NA CHLORIDE 0.9% 100 ML IVPB SCH (09:00)
[2022-09-17] MEDS: predniSONE 20 MG TAB PO SCH ×2 (09:00→21:14)
[2022-09-17] MEDS: ENSURE HIGH PROTEIN 237 ML CAN PO SCH ×3 (09:01→21:15)
[2022-09-17] MEDS: TIMOLOL OPTH SCH ×2 (09:03→21:15)
[2022-09-17] MEDS: BRIMONIDINE OPTH SCH ×2 (09:03→21:15)
--- NOTE | 2022-09-17 09:38 | RAD REPORT ---
EXAM DESCRIPTION: Savita Single View09/17/2022 6:05 am CLINICAL HISTORY: Chest pain COMPARISON: September 15, 2022 FINDINGS: Mild left lung opacities have developed Worsening right lung alveolar opacities Heart is borderline enlarged IMPRESSION: Worsening right lung alveolar opacities which are moderate to marked likely pneumonia Mild left lung opacities
--- NOTE | 2022-09-17 10:02 | P.PN ---
Subjective Date of Service: 09/17/22 Chief Complaint: Pneumonia altered mental status Subjective: Improving (Patient is doing much better hyperglycemia is resolved he is more alert responsive cooperative eating and drinking) Review of Systems General: Weakness Physical Examination - Vital Signs Temperature: 97.2 F Blood Pressure: 103/61 Pulse: 63 Respirations: 25 Pulse Ox (%): 95 - Physical Exam General: Alert, Cooperative Respiratory: Clear to auscultation bilaterally Cardiovascular: No edema, Normal pulses - Studies Medications List Reviewed: Yes Assessment And Plan - Current Problems (Diagnosis) (1) Pneumonia Current Visit: Yes Status: Acute Plan: Patient is currently improved more alert responsive white count declining eating and drinking patient developed A-fib is now on amiodarone Qualifiers: Pneumonia type: due to unspecified organism Laterality: right (2) Hyperglycemia due to type 1 diabetes mellitus Current Visit: Yes Status: Acute Plan: Resolved DC steroids
[2022-09-17] MEDS: LEVALBUTEROL 1.25 MG/3 ML NEB NEB SCH ×2 (14:20→19:30)
[2022-09-17] MEDS: DOXYCYCLINE 100 MG CAP PO SCH (21:14)
[2022-09-18] MEDS: NACHLORIDE 0.45% 1,000 ML IV SCH ×2 (01:54→09:00)
[2022-09-18] MEDS: LEVALBUTEROL 1.25 MG/3 ML NEB NEB SCH ×2 (02:55→08:03)
[2022-09-18 06:34] LABS: Hematocrit 36.3 % (39.6-49.0); MCV 92.6 fL (80-100); MPV 10.3 fL (7.6-11.3); RBC Red Blood Cell Count 3.92 M/uL (4.33-5.43)
[2022-09-18] MEDS: INSULIN 70/30 100 UNITS/ML SQ SCH (09:23)
[2022-09-18] MEDS: POTASSIUM 25 MEQ EFFERV TAB PO SCH (09:24)
[2022-09-18] MEDS: CEFTRIAXONE 1,000 MG in NA CHLORIDE 0.9% 50 ML IVPB SCH (09:24)
[2022-09-18] MEDS: ENOXAPARIN 40 MG/0.4 ML SQ SCH (09:24)
[2022-09-18] MEDS: TAMSULOSIN 0.4 MG SR CAP PO SCH (09:25)
[2022-09-18] MEDS: acetaZOLAMIDE 250 MG TAB PO SCH (09:25)
[2022-09-18] MEDS: AMIODARONE HCL 200 MG TAB PO SCH (09:25)
[2022-09-18] MEDS: DOXYCYCLINE 100 MG CAP PO SCH (09:51)
[2022-09-18] MEDS: BRIMONIDINE OPTH SCH (09:51)
[2022-09-18] MEDS: METFORMIN ER 500 MG TAB PO SCH (09:51)
[2022-09-18] MEDS: TIMOLOL OPTH SCH (09:51)
[2022-09-18] MEDS: ENSURE HIGH PROTEIN 237 ML CAN PO SCH (09:52)
[2022-09-18] MEDS: Prednisolone Acet 1% Eye Drop OPTH SCH (09:52)
[2022-09-18 09:54] LABS: Albumin 1.8 g/dL (3.4-5.0); Bilirubin Total 0.4 mg/dL (0.2-1.0); Magnesium 1.8 mg/dL (1.6-2.4); Potassium 3.4 mEq/L (3.5-5.1); Protein, Total 5.7 g/dL (6.4-8.2)
[2022-09-18 10:52] VITALS: TEMP 97.1
[2022-09-18 12:31] VITALS: O2SAT 95
[2022-09-18 12:51] VITALS: BP 99/65
--- NOTE | 2022-09-19 14:42 | EKG ---
Test Date: 2022-09-15 Test Time: 20:02:22 Studio Designer: NIRAJ MEASUREMENT RESULTS: Intervals: Rate: 137 [place]: QRSD: 102 QT: 296 QTc: 446 [place]: P: [place]: QRS: 22 T: 18 INTERPRETIVE STATEMENTS: Atrial fibrillation with rapid ventricular response Low voltage QRS Incomplete right bundle branch block Abnormal ECG Compared to ECG 09/14/2022 11:39:11 Low QRS voltage now present Incomplete right bundle-branch block now present Sinus tachycardia no longer present Atrial premature complex(es) no longer present Right bundle-branch block no longer present Electronically Signed On 09-19-22 14:38:53 CDT by Alvin Anthony
--- NOTE | 2022-09-19 14:42 | EKG ---
Test Date: 2022-09-15 Test Time: 22:44:34 Smasher: NIRAJ MEASUREMENT RESULTS: Intervals: Rate: 79 [place]: 132 QRSD: 108 QT: 374 QTc: 428 [place]: P: 61 [place]: 132 QRS: 16 T: 10 INTERPRETIVE STATEMENTS: Sinus rhythm with premature atrial complexes Otherwise normal ECG Compared to ECG 09/15/2022 22:43:52 Incomplete right bundle-branch block no longer present T-wave abnormality no longer present Electronically Signed On 09-19-22 14:38:46 CDT by Alvin Anthony
--- NOTE | 2022-09-19 14:42 | EKG ---
Test Date: 2022-09-15 Test Time: 22:43:52 Balance And Hairspring Assembler: NIRAJ MEASUREMENT RESULTS: Intervals: Rate: 83 [place]: 130 QRSD: 116 QT: 362 QTc: 425 [place]: P: 56 [place]: 130 QRS: 14 T: -1 INTERPRETIVE STATEMENTS: Sinus rhythm with premature atrial complexes Incomplete right bundle branch block Nonspecific T wave abnormality Abnormal ECG Compared to ECG 09/15/2022 20:02:22 Atrial premature complex(es) now present T-wave abnormality now present Atrial fibrillation no longer present Electronically Signed On 09-19-22 14:38:48 CDT by Alvin Anthony
== END 2022-09-18 12:20 | disposition home or self-care (01) | DRG 871 ==
LOC: ER 10:30 → EDSEX 10:30 → ERHOLD 14:52 → 4TH 17:35 → 3RD-ICU 09-15 21:01
PROVIDERS: ADMIT Internal Medicine Sleep Medicine; ATTEND Hospitalist
DX: A41.9 Sepsis, unspecified organism (principal); J18.9 Pneumonia, unspecified organism; E87.20 Acidosis, unspecified; R65.20 Severe sepsis without septic shock; E10.65 Type 1 diabetes mellitus with hyperglycemia; E86.0 Dehydration; Z86.73 Personal history of transient ischemic attack (TIA), and cerebral infarction without residual deficits; Z79.899 Other long term (current) drug therapy; Z87.891 Personal history of nicotine dependence
CPT/HCPCS: 36415; 71045; 71250; 80053; 82010; 82533; 82607; 82805; 82947; 83605; 83735; 83880; 84145; 84439; 84443; 84484; 85025; 85027; 85610; 85730; 86140; 87040; 93005; 94640; 96372; 97112; 97161; 97530; 99284; J0282; J0696; J1160; J1650; J1815; J2930; J3411; J3480; J7030; J7040; J7050; J7060; J7512; J7614; P9047